=== PATIENT | male | born 1985 | race Caucasian/White ===

== ENCOUNTER 2021-01-12 13:26 | Emergency (ER) | payer MEDICARE, OTHER, SELFPAY ==
[2021-01-12 14:50] VITALS: BP 113/64; PULSE 91; RESP 21; TEMP 37.2; O2SAT 98; BMI 69.9
--- NOTE | 2021-01-12 15:18 | HMH.EDUTC ---
[facility] Disposition Clinical Impression: Cellulitis Qualifiers: Site of cellulitis: unspecified site Qualified Code(s): L03.90 - Cellulitis, unspecified Disposition: Home, Self-Care Condition on Discharge: Good Instructions: Cellulitis, Cephalexin Additional Instructions: *Start antibiotic(s) immediately and be sure to take as ordered for the FULL length of time although you may be feeling better or start to see improvement in the next 24-48 hours *Monitor closely. Outlined redness so that you can monitor easier. Follow up immediately for new or worsening symptoms including but not limited to redness, swelling, streaking from site fever or chills. *Warm compress 15 minutes 3-4 times day *Never squeeze or pop these on your own. Seek immediate medical attention next time this occurs *Monitor Temp. Tylenol every 4 hours as needed and ibuprofen every 6 hours as needed (as long as your primary care doctor has told you that it is ok to take both. For fever, aches, pain. ER if no less that 101 despite Tylenol and ibuprofen Follow up with your family doctor/primary care physician in the next 48-72 hours Prescriptions: cephALEXin [cephALEXin 500mg capsule*] 500 mg PO Q6H 10 Days #40 cap Transmission Status: Received by [facility]/pharmacy #[id number] Referrals: Palak Norwood APRN [Primary Care Provider] - (Follow up in office on Tue or call for appointment) Forms: Work/School Release Time of Disposition: 15:41 Medical Decision Making - Darein Inquiry Pt receiving controlled substance: No Darein was queried for this patient: No Vital Signs: 01/12/21 14:50 01/12/21 15:51 Temperature 98.9 F 98.9 F Temperature Source Oral Pulse Rate 91 H Pulse Rate [Right Brachial] 91 H Respiratory Rate 21 21 Blood Pressure 113/64 Blood Pressure [Right Arm] 113/64 Blood Pressure Mean [Right Arm] 80 Blood Pressure Source [Right Arm] Automatic Cuff Blood Pressure Position [Right Arm] Sitting 02 Sat by Pulse Oximetry 98 Oxygen Delivery Method Room Air - Physician Consults Physician Consulted: Dr Valdez Time: 15:31 Reason -: Other Comment/Response: Spoke with Dr Valdez that is covering for Lacey Norwood and informed him of patient complaints and finding and he advised to start patient on Keflex and have him follow up in the Clinic on Tue or for recheck to make sure that it is clearing up Medical Decision Narrative: Discussed with patient about transfer to the ED for further evaluation and examination and treatment and patient declined states that he has had this before and took oral Cephalexin and it cleared up and wanted to try that again and if it did not help he would see his PCP for treatment Called [facility] pharmacy that filled his last antibiotics and they viewed his chart and he was given Cephalexin 500mg QID x 10 days like was discussed today for treatment [facility] HPI - General Stated complaint: possible cellouitis in stomach Time Seen by Provider: 01/12/21 15:18 Mode of Arrival: Ambulatory Source of Information: Patient Limitations: No Limitations Description of Symptoms (Recalled from Triage Doc. by RN): PATIENT C/O POSSIBLE CELLULITIS O STOMACH X 2 DAYS HEENT Symptoms (Recalled from RN notes): No Resp Symptoms (Recalled from RN notes): No Skin Symptoms (Recalled from RN notes): Yes MS Symptoms (Recalled from RN notes): No Functional Status (Recalled from RN notes): WNL - History of Present Illness Provider Complaint: Patient states that sometimes he gets cellulitis on the skin on his lower abdomen States that he noticed a couple of days ago it was starting to look red but not got hot yet so he was hoping to get in and get medication to clear it up - Related Data Home Medications Medication Instructions Recorded Confirmed ARIPiprazole [Abilify 10mg 10 mg PO DAILY 01/12/21 01/12/21 Tablet] lisinopriL [Lisinopril] 5 mg PO DAILY 01/12/21 01/12/21 Previous Rx's Medication Instructions Recorded karen
[2021-01-12 15:51] VITALS: BP 113/64; PULSE 91; RESP 21; TEMP 37.2; O2SAT 98
== END 2021-01-12 16:00 | disposition home or self-care (01) ==
PROVIDERS: Emergency Provider Nurse Practitioner; PCP Nurse Practitioner
DX: L03.311 Cellulitis of abdominal wall (principal)
CPT/HCPCS: G0463; 99202